=== PATIENT | female | born 1990 | race Caucasian/White ===

== ENCOUNTER 2017-06-02 18:40 | Emergency (ER) | payer MEDICAID ==
[~2017-06-02] VITALS: Ht 167.6 cm; Wt 61.5 kg
[~2017-06-02 18:40] MED LIST: CEPH-443 PO; DOCU-144 PO; HYDR-3498 PO; NAPR-260 PO; NITR-58 PO; POLY17PO6 PO
[2017-06-02 18:47] VITALS: Ht 167.6 cm; Wt 61.5 kg
[2017-06-03] MEDS ORDERED: KETOROLAC 60 MG INJ IM STA (00:52)
[2017-06-03] MEDS ORDERED: ONDANSETRON 4 MG INJ IM STA (00:52)
[2017-06-03 01:22] VITALS: BP 121/85; PULSE 67; RESP 16
[2017-06-03] MEDS ORDERED: CLON-379 PO (01:26)
[2017-06-03] MEDS ORDERED: NAPR-688 PO (01:26)
[2017-06-03] MEDS ORDERED: ONDA4TAB11 PO (01:26)
--- NOTE | 2017-06-03 01:43 | ERD ---
ER Documentation Chief Complaint Date/Time DATE: 06/03/17 TIME: 01:40 Chief Complaint PT awaiting admission to a treatment center HPI 26-year-old female presented to the emergency room hoping to get help when her decision to stop taking opiates. He has not completely stopped that she was on prescription opiates previously. 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 She already has a spot at [facility]. She has no fevers chills or any other medical problems. She does have nausea, feeling of uneasiness and back pain. She denies the possibility of being . ROS All systems reviewed and are negative except as per history of present illness. Medications Home Meds Active Scripts Clonidine Hcl* (Clonidine Hcl*) 0.1 Mg Tab, 0.1 MG PO BID for CONTROL WITHDRAWAL SYMPTOMS, #5 TAB Prov:MANAHAZEL DO 06/03/17 Naproxen* (Naproxen*) 500 Mg Tablet, 500 MG PO BID Y for PAIN, #14 TAB Prov:MANAHAZEL DO 06/03/17 Ondansetron (Zofran Odt) 4 Mg Tab.rapdis, 4 MG PO Q6, #14 Prov:HAZEL ADAIR DO 06/03/17 Polyethylene Glycol* (Miralax*) 17 Gm Powd.pack, 17 GM PO DAILY, #7 Prov:BRUNA SEWELL NP 09/21/15 Cephalexin* (Keflex*) 500 Mg Capsule, 500 MG PO QID for 10 Days, CAP Prov:BRUNA SEWELL NP 09/21/15 Docusate Sodium* (Colace*) 100 Mg Capsule, 100 MG PO TID, #30 Prov:BRUNA SEWELL NP 09/21/15 Hydrocodone Bit-Acetaminophen* (Wasta*) 5-325 Mg Tab, 1 TAB PO Q6 Y for PAIN, # 10 TAB Prov:STEVEN STEPHENSON PA-C 08/25/15 Nitrofurantoin Monohyd Macrocr* (Macrobid*) 100 Mg Capsr, 100 MG PO BID for 7 Days, CAP Prov:STEVEN STEPHENSON PA-C 08/25/15 Naproxen* (Naprosyn*) 500 Mg Tablet, 500 MG PO BID Y for PAIN AND/OR INFLAMMATION, #30 TAB Prov:STEVEN STEPHENSON PA-C 08/25/15 Allergies Allergies: Coded Allergies: No Known Allergy (Unverified , 09/21/15) PMhx/Soc History of Surgery: Yes (JAW SX) Anesthesia Reaction: No Hx Neurological Disorder: No Hx Respiratory Disorders: No Hx Cardiac Disorders: No Hx Psychiatric Problems: Yes (bipolar, depression) Hx Miscellaneous Medical Probl: Yes (left ovarian cyst) Hx Alcohol Use: Yes (daily) Hx Substance Use: Yes (OPIODS PILLS) Hx Tobacco Use: No Smoking Status: Never smoker Physical Exam Vitals Vital Signs Date Time Temp Pulse Resp B/P Pulse Ox O2 Delivery O2 Flow Rate FiO2 06/03/17 01:22 67 16 121/85 99 Room Air 06/02/17 18:47 98.9 76 18 138/89 96 Physical Exam Const: [] No distress Head: Atraumatic Eyes: Normal Conjunctiva ENT: Normal External Ears, Nose and Mouth. Abd: Soft, non tender, non distended. Normal bowel sounds Skin: No petechiae or rashes Back: No midline or flank tenderness Ext: No cyanosis, or edema Neur: Awake and alert and oriented 3 Psych: Normal Mood and Affect Results 24 hrs Current Medications Medications (Trade) Dose Ordered Sig/Darcy Route PRN Reason Start Time Stop Time Status Last Admin Dose Admin Ondansetron HCl (Zofran Inj) 4 mg ONCE STAT IM 06/03/17 00:52 06/03/17 00:54 DC 06/03/17 01:05 Clonidine (Catapres) 0.1 mg ONCE ONCE PO 06/03/17 01:00 06/03/17 01:01 DC 06/03/17 01:10 Ketorolac Tromethamine (Toradol) 60 mg ONCE STAT IM 06/03/17 00:52 06/03/17 00:54 DC 06/03/17 01:05 Procedures/MDM Stated opiate withdrawals with no signs thereof. Patient was given Zofran as well as a clonidine tab and Toradol. She was feeling better after this and tolerated clonidine with no obvious effects on her blood pressure. She has stable vital signs. I am going to discharge her with 5 clonidine tablets which I have explained cannot be taken more than one at a time and no more than twice a day. I am also discharging with Zofran ODT and naproxen. Instructed her to go to the [place] detox facility and follow-up with primary care doctor in next 2-3 days today. I did spend greater than 3 minutes at her bedside discussing opiate cessation. Departure Diagnosis: Primary Impression: Nausea Additional Impression: Opiate withdrawal Patient Instructions: Nausea, Narcotic Withdrawal Referrals: [facility] YOU HAVE RECEIVED A MEDICAL SCREENING EXAM AND THE RESULTS INDICATE THAT YOU DO NOT HAVE A CONDITION THAT REQUIRES URGENT TREATMENT IN THE EMERGENCY DEPARTMENT. FURTHER EVALUATION AND TREATMENT OF YOUR CONDITION CAN WAIT UNTIL YOU ARE SEEN IN YOUR DOCTORS OFFICE WITHIN THE NEXT 1-2 DAYS. IT IS YOUR RESPONSIBILITY TO MAKE AN APPOINTMENT FOR FOLOW-UP CARE. IF YOU HAVE A PRIMARY DOCTOR --you should call your primary doctor and schedule an appointment IF YOU DO NOT HAVE A PRIMARY DOCTOR YOU CAN CALL OUR PHYSICIAN REFERRAL HOTLINE AT IF YOU CAN NOT AFFORD TO SEE A PHYSICIAN YOU CAN CHOSE FROM THE FOLLOWING [facility] [address] [facility] [address] [facility] [facility] [address] [facility] [address] [facility] [address]. [facility]. [address] Additional Instructions: Call your primary care doctor TOMORROW for an appointment during the next 2-3 days.See the doctor sooner or return here if your condition worsens before your appointment time. HAZEL ADAIR DO Jun 03, 2017 01:43
== END 2017-06-03 02:23 | disposition home or self-care (01) ==
LOC: E/R 18:40
DX: R11.0 Nausea (principal); F11.20 Opioid dependence, uncomplicated; R40.2142 Coma scale, eyes open, spontaneous, at arrival to emergency department; R40.2362 Coma scale, best motor response, obeys commands, at arrival to emergency department; R40.2252 Coma scale, best verbal response, oriented, at arrival to emergency department
CPT/HCPCS: 96372; J1885; J2405; Z7502; Z7610